=== PATIENT | male | born 1950 | race Caucasian/White ===

== ENCOUNTER 2022-09-07 08:57 | Emergency (ER) | payer OTHER, MEDICAID ==
[~2022-09-07] VITALS: Ht 182.9 cm; Wt 90.3 kg
[2022-09-07 09:14] VITALS: BP 129/64
--- NOTE | 2022-09-07 09:18 | NUR ---
PT AMBULATED WITH ASSIST TO ER BED 7
--- NOTE | 2022-09-07 09:26 | NUR ---
72YO MALE PT BIB CAREGIVER FROM [facility] C/O FALL XTODAY. CAREGIVER REPORTS UNWITNESSED FALL X1AM AND FINDING PT ON FLOOR AAOX4 . +HEADINJURY-LOC -BLOODTHINNERS. PT STATES GETTING UP TO USE RESTROOM , FEELING DIZZY AND FALLING AFTER HITTING HEADBOARD. PRESENTS WITH BRUISEA AROUND L EYE AND LAC IN L EYBROW, NO ACTIVE BLEEDING. DENIES N/V, CHANGE IN VISION OR ANY OTHER INJURY. PT AT BASELINE, AMB W/ ASSIST. NO VISIBLE DISTRESS. HX: DIABETES, HTN, DEPRESSION, INTELLECTUAL DISABILITY ALLERGIES: DEPAKOTE, PENICILLIN, VANCOMYCIN
--- NOTE | 2022-09-07 09:32 | NUR ---
DR SANDERS AT BEDSIDE EVALUATING PT
[2022-09-07] MEDS ORDERED: ACETAMINOPHEN EXTRA STRENGTH 500 MG TAB PO ONE (09:35)
[2022-09-07] MEDS ORDERED: BACITRACIN OINT 500 UNITS/GM PKT TP ONE (09:35)
[2022-09-07] MEDS ORDERED: LIDOCAINE 1% 500 MG/ 50 ML VIAL INJ ONE (09:35)
[2022-09-07] MEDS ORDERED: LIDOCAINE MPF 1% 10 MG/ML VIAL INJ ONE (09:55)
--- NOTE | 2022-09-07 10:04 | NUR ---
LAB AT BEDSIDE
--- NOTE | 2022-09-07 10:18 | NUR ---
PT TAKEN TO CT VIA HENRY
[2022-09-07 10:21] LABS: BASOPHILS % (AUTO) 0.4 % (0.0-2.0); EOSINOPHILS % (AUTO) 0.9 % (0.0-4.0); HEMATOCRIT 32.2 % (36-52); LYMPHOCYTES # (AUTO) 0.8 K/uL (2.0-11.5); LYMPHOCYTES % (AUTO) 20.2 % (20.5-51.1); MEAN CORPUSCULAR HEMOGLOBIN 32 pg (27-31); MEAN CORPUSCULAR HGB CONC 34 g/dL (33-37); MEAN CORPUSCULAR VOLUME 92.6 fL (80-94); MONOCYTES # (AUTO) 0.4 K/uL (0.8-1.0); MONOCYTES % (AUTO) 9.2 % (1.7-9.3); NEUTROPHILS # (AUTO) 2.7 K/uL (1.8-7.7); NEUTROPHILS % (AUTO) 69.3 % (42.2-75.2); PLATELET COUNT (AUTO) 171 K/uL (140-450); RED BLOOD CELL COUNT(AUTO) 3.48 MIL/uL (4.20-6.10); RED CELL DISTRIBUTION WIDTH 14.2 % (11.6-13.7); WHITE BLOOD COUNT (AUTO) 3.9 K/uL (4.8-10.8)
--- NOTE | 2022-09-07 10:26 | NUR ---
PT BROUGHT BACK VIA [facility]
[2022-09-07 10:34] LABS: PROTHROMBIN TIME 10.4 secs (10.8-13.4)
[2022-09-07 10:35] LABS: ALBUMIN 3.7 g/dL (3.4-5.0); ANION GAP 12.6 (8-16); ASPARTATE AMINOTRANSFERASE 34 U/L (15-37); CARBON DIOXIDE 31.3 mmol/L (21-32); CHLORIDE 97 mmol/L (98-107); CREATININE 0.8 mg/dL (0.6-1.3); GLUCOSE 239 mg/dL (74-106); POTASSIUM 3.9 mmol/L (3.5-5.1); SODIUM SERUM 137 mmol/L (136-145); TOTAL BILIRUBIN 0.3 mg/dL (0.0-1.0); UREA NITROGEN, BLOOD 16 mg/dL (7-18)
[2022-09-07 11:30] VITALS: BP 140/74
[2022-09-07] MEDS ORDERED: BACO TP (11:30)
[2022-09-07] MEDS ORDERED: ACET-10509 PO (11:30)
--- NOTE | 2022-09-07 11:44 | NUR ---
Patient discharged with v/s stable. Written and verbal after care instructions FOR FALL PREVENTION, HEAD INJURY AND LAC CARE given and explained. Patient alert, oriented and verbalized understanding of instructions. Ambulatory with by caregiver. All questions addressed prior to discharge. ID band removed. Patient advised to follow up with PMD. Rx of TYLENOL XTRA STRENGTH AND BACITRACIN OINT given. Opportunity to ask questions provided and answered.
--- NOTE | 2022-09-07 11:45 | NUR ---
The patient's care was reviewed and supervised by Nicole Hall RN.
== END 2022-09-07 11:44 | disposition home or self-care (01) ==
LOC: MED 08:57
DX: S01.01XA Laceration without foreign body of scalp, initial encounter (principal); E11.9 Type 2 diabetes mellitus without complications; Z79.4 Long term (current) use of insulin; Z79.899 Other long term (current) drug therapy; Z85.9 Personal history of malignant neoplasm, unspecified; W18.30XA Fall on same level, unspecified, initial encounter; Y93.89 Activity, other specified; Y92.89 Other specified places as the place of occurrence of the external cause; Y99.8 Other external cause status; Z86.2 Personal history of diseases of the blood and blood-forming organs and certain disorders involving the immune mechanism
CPT/HCPCS: 12001; 36415; 70450; 80053; 85025; 85610; 85730; 90471; 90715; 93005; 99285; J2001